=== PATIENT | female | born 1945 | race Caucasian/White ===

== ENCOUNTER 2020-07-30 15:13 | Outpatient (CLI) | payer MEDICARE ==
--- NOTE | 2020-07-30 16:52 | DEXA Report ---
PROCEDURE: Dexa Spine and/or Hip INDICATIONS: OSTEOPOROSIS TECHNIQUE: Dual energy x-ray absorptiometry (DXA) was performed on a [employer] System. Regions measur ed are the AP Spine, femoral neck, and if needed forearm. COMPARISON: None. FINDINGS: Lumbar Spine: Bone Mineral Density 0.820 g/cm/cm,T score -3.0, osteoporosis Left Hip: Bone Mineral Density 0.594 g/cm/cm,T score -3.3, osteoporosis Left Femoral Neck: Bone Mineral Density 0.571 g/cm/cm, T score -3.4, osteoporosis (T score greater or equal to -1.0: NORMAL) (T score from -1.1 to -2.4: OSTEOPENIA) (T score less than or equal to -2.5 to: OSTEOPOROSIS) Impression: Osteoporosis is present within the lumbar spine, hip and femoral neck. Patients with diagnosis of osteoporosis or osteopenia should have regular bone mineral density assess ment. For those eligible for Medicare, routine testing is allowed once every 2 years. Testing frequ ency can be increased for patients who have rapidly progressing disease or for those who are receivin g medical therapy to restore bone mass. Reviewed by: Hanna Ortiz MD on 07/30/2020 4:51 PM PDT Approved by: Hanna Ortiz MD on 07/30/2020 4:51 PM PDT Station ID: [id number]
== END 2020-07-30 15:14 | disposition home or self-care (01) ==
LOC: DI 15:13
PROVIDERS: ATTEND Nurse Practitioner Family
DX: M81.0 Age-related osteoporosis without current pathological fracture (principal)

== ENCOUNTER 2020-08-17 11:30 | Outpatient (CLI) | payer MEDICARE ==
--- NOTE | 2020-08-17 18:11 | XRAY Report ---
PROCEDURE: Lumbar Spine 2 View INDICATIONS: LOW BACK PAIN TECHNIQUE: 3 views of the lumbar spine were acquired. COMPARISON: None. FINDINGS: Bones: 5 [id number] vertebrae are present. There is approximately 35 degrees of convex left th oracolumbar spine scoliosis. Mild degenerative changes noted throughout the lumbar spine. Mild L4-L5 and L5-S1 facet arthropathy. No vertebral body compression fractures. No suspicious bony lesions. Soft tissues: Overlying bowel gas pattern is normal. No suspicious soft tissue calcifications. IMPRESSION: 1. Convex left thoracolumbar spine scoliosis. 2. Multilevel degenerative disc disease. 3. Multilevel facet arthropathy. 4. No fracture. No acute osseous lesion. If there is continued clinical concern for pathology, then M RI should be considered for further evaluation. Reviewed by: Diana Young MD, PhD on 08/17/2020 6:10 PM PDT Approved by: Diana Young MD, PhD on 08/17/2020 6:10 PM PDT Station ID: [id number]
== END 2020-08-17 11:31 | disposition home or self-care (01) ==
LOC: DI.S 11:30
PROVIDERS: ATTEND Nurse Practitioner Family
DX: M47.816 Spondylosis without myelopathy or radiculopathy, lumbar region (principal); M47.817 Spondylosis without myelopathy or radiculopathy, lumbosacral region; M51.36 Other intervertebral disc degeneration, lumbar region

== ENCOUNTER 2020-08-25 08:31 | Outpatient (CLI) | payer MEDICARE ==
--- NOTE | 2020-08-25 11:42 | XRAY Report ---
PROCEDURE: Thoracic Spine 2 View INDICATIONS: SCOLIOSIS TECHNIQUE: 3 views of the thoracic spine were acquired. COMPARISON: None. FINDINGS: Bones: S-shaped scoliosis of the thoracolumbar spine with convex right thoracic spine curvature and convex left lumbar spine curvature. No fractures or dislocations. No suspicious bony lesions. 12 pa irs of ribs are noted, and appear intact where visualized. Mild to moderate degenerative disc changes noted throughout the thoracic spine. Soft tissues: No paravertebral stripe thickening. IMPRESSION: 1. Thoracolumbar spine S-shaped scoliosis. 2. No fracture. No acute osseous lesion. If there is continued clinical concern for pathology, then M RI should be considered for further evaluation. Reviewed by: Diana Young MD, PhD on 08/25/2020 11:40 AM PDT Approved by: Diana Young MD, PhD on 08/25/2020 11:40 AM PDT Station ID: [id number]
== END 2020-08-25 08:32 | disposition home or self-care (01) ==
LOC: DI.S 08:31
PROVIDERS: ATTEND Nurse Practitioner Family
DX: M41.9 Scoliosis, unspecified (principal)

== ENCOUNTER 2020-12-21 08:46 | Day surgery (SDC) | payer MEDICARE ==
[2020-12-21] MEDS ORDERED: LACTATED RINGERS 1,000 ML IV ONE (09:28)
[2020-12-21] MEDS ORDERED: MIDAZOLAM 2 MG/2 ML VIAL ONE (10:06)
[2020-12-21] MEDS ORDERED: fentaNYL 250 MCG/5 ML VIAL ONE (10:06)
[2020-12-21] MEDS ORDERED: LACTATED RINGERS 500 ML IV ONE (10:29)
[2020-12-21 11:24] VITALS: BP 92/68
== END 2020-12-21 08:47 | disposition home or self-care (01) ==
LOC: SDS 08:46
PROVIDERS: ATTEND Surgery
DX: Z12.11 Encounter for screening for malignant neoplasm of colon (principal); K57.30 Diverticulosis of large intestine without perforation or abscess without bleeding; K64.8 Other hemorrhoids; K64.4 Residual hemorrhoidal skin tags; Z80.0 Family history of malignant neoplasm of digestive organs
CPT/HCPCS: G0105; J3010; J7120

== ENCOUNTER 2022-08-03 08:00 | Outpatient (CLI) | payer MEDICARE ==
--- NOTE | 2022-08-03 10:11 | DEXA Report ---
PROCEDURE: Dexa Spine and/or Hip INDICATIONS: OSTEOPOROSIS TECHNIQUE: Dual energy x-ray absorptiometry (DXA) was performed on a [employer] System. Regions measur ed are the AP Spine, femoral neck, and if needed forearm. COMPARISON: 11/29/2020 FINDINGS: Lumbar Spine: Leftward spinal curvature. Bone Mineral Density 0.87 g/cm/cm,T score -2.6, previously -3 Left Femoral Neck: Bone Mineral Density 0.58 g/cm/cm, T score -3.3, previously -3.4 Left Hip: Bone Mineral Density 0.62 g/cm/cm,T score -3.1, previously -3.3 (T score greater or equal to -1.0: NORMAL) (T score from -1.1 to -2.4: OSTEOPENIA) (T score less than or equal to -2.5 to: OSTEOPOROSIS) Impression: T-scores have slightly improved compared to 2020 study, but still within the osteoporotic range with significantly increased fracture risk. Patients with diagnosis of osteoporosis or osteopenia should have regular bone mineral density assess ment. For those eligible for Medicare, routine testing is allowed once every 2 years. Testing frequ ency can be increased for patients who have rapidly progressing disease or for those who are receivin g medical therapy to restore bone mass. Reviewed by: Gómez Farah MD on 08/03/2022 10:10 AM PDT Approved by: Gómez Farah MD on 08/03/2022 10:10 AM PDT Station ID: [id number]
== END 2022-08-03 08:01 | disposition home or self-care (01) ==
LOC: DI 08:00
PROVIDERS: ATTEND Nurse Practitioner Family
DX: M81.0 Age-related osteoporosis without current pathological fracture (principal); M41.9 Scoliosis, unspecified

== ENCOUNTER 2022-08-30 11:07 | Outpatient (CLI) | payer MEDICARE ==
--- NOTE | 2022-08-30 20:38 | XRAY Report ---
PROCEDURE: Spine Scoliosis Study 2-3V INDICATIONS: SCOLIOSIS TECHNIQUE: Frontal and lateral standing views of the spine acquired. COMPARISON: Thoracic spine radiographs 08/25/2020 and lumbar spine radiographs 08/17/2020. FINDINGS: Generalized osteopenia. Dextroconvex curvature of the lower thoracic spine is seen centered at the T9 -10 level with Arechiga angle of approximately 49 degrees. Levoconvex curvature of the lumbar spine is se en centered at L2 with Arechiga angle of 58 degrees. No anomalous vertebral body is seen. There are 12 ri b pairs bilaterally. 5 nonrib-bearing lumbar-type vertebral bodies are present. Multilevel degenerati ve changes are noted. There is generalized osteopenia. IMPRESSION: 1.Scoliotic curvature of the thoracolumbar spine as described in the body of the report, not signific antly changed when compared to the radiographs from 08/17/2020 and 08/25/2020. 2.Generalized osteopenia. Reviewed by: Duane Russ MD on 08/30/2022 8:37 PM PDT Approved by: Duane Russ MD on 08/30/2022 8:37 PM PDT Station ID: [id number]
== END 2022-08-30 11:08 | disposition home or self-care (01) ==
LOC: DI.N 11:07
PROVIDERS: ATTEND Nurse Practitioner Family
DX: M47.816 Spondylosis without myelopathy or radiculopathy, lumbar region (principal); M41.9 Scoliosis, unspecified; M85.88 Other specified disorders of bone density and structure, other site